=== PATIENT | male | born 1970 | race Caucasian/White ===

== ENCOUNTER 2016-08-07 09:31 | Emergency (ER) | payer OTHER ==
[2016-08-07] MEDS ORDERED: methylPREDNISolone SOD SUCCI 125 MG/2 ML VIAL IM ONE (10:24)
--- NOTE | 2016-08-07 10:30 | ED ---
Back Pain HPI - General Chief Complaint: Back Pain/Injury Stated Complaint: back pain Time Seen by Provider: 08/07/16 10:07 Source: patient Limitations: no limitations - History of Present Illness Initial Comments: 46-year-old male awoke with back pain this morning. Hard to get out of bed. Has a history of chronic pain for about 10 years fell off of a roof. He's had CAT scan 3 weeks ago. He states his back has been flaring up for the last 1 month. He does not take any narcotics other than tramadol. He is on muscle relaxers. He states his stiff he has no radiation of pain down his legs today no loss of bowel or bladder control. No recent injury. No fever or chills. No other serious health problems. No recent steroids so recent narcotics - Related Data Home Medications Medication Instructions Recorded Confirmed Albuterol Nebulized [Ventolin 2.5 mg INHALATION RT-Q6H PRN 03/01/16 03/01/16 Nebulized] Cyclobenzaprine [Flexeril] 10 mg PO BID PRN 03/01/16 03/01/16 HYDROcodone/APAP 7.5-325MG [[place] 1 tab PO TID PRN 03/01/16 03/01/16 7.5-325] Ibuprofen [Motrin] 200 - 400 mg PO Q6HR PRN 03/01/16 03/01/16 Previous Rx's Medication Instructions Recorded Dexamethasone 0.75 mg PO DAILY #12 tablet 03/01/16 Hydrocodone/Acetaminophen [[place] 1 each PO Q6HR PRN #30 tab 03/01/16 5-325] Orphenadrine [Norflex] 100 mg PO Q12H #10 tablet.er 03/01/16 Dexamethasone 0.75 mg PO DIRECTED #18 tab 08/07/16 Allergies Allergy/AdvReac Type Severity Reaction Status Date / Time No Known Allergies Allergy Verified 08/07/16 09:35 Review of Systems ROS Statement: Those systems with pertinent positive or pertinent negative responses have been documented in the HPI. ROS Other: All systems not noted in ROS Statement are negative. Constitutional: Denies: fever, chills Eyes: Denies: eye pain, eye discharge ENT: Denies: ear pain, throat pain Respiratory: Denies: cough, dyspnea Cardiovascular: Denies: chest pain Gastrointestinal: Denies: abdominal pain, nausea, vomiting, diarrhea Genitourinary: Denies: urgency, dysuria, frequency Musculoskeletal: Reports: back pain Skin: Denies: rash Past Medical History Past Medical History: No Reported History Additional Past Medical History / Comment(s): back pain History of Any Multi-Drug Resistant Organisms: MRSA Date of last positivie culture/infection: 04/10/15 MDRO Source:: right hand Past Surgical History: No Surgical Hx Reported Past Psychological History: No Psychological Hx Reported Smoking Status: Former smoker Past Alcohol Use History: None Reported Past Drug Use History: None Reported General Exam Limitations: no limitations General appearance: alert, in no apparent distress Head exam: Present: atraumatic Eye exam: Present: PERRL, EOMI ENT exam: Present: normal oropharynx Respiratory exam: Present: normal lung sounds bilaterally Cardiovascular Exam: Present: normal heart sounds GI/Abdominal exam: Present: soft Back exam: Present: tenderness (Low lumbar spine tenderness, pain with moving especially straightening negative straight leg raising reflexes symmetric) Neurological exam: Present: alert, CN II-XII intact Psychiatric exam: Present: normal affect, normal mood Skin exam: Present: warm, dry Course Vital Signs 08/07/16 09:33 Temperature 98.2 F Pulse Rate 108 H Respiratory 20 Rate Blood Pressure 140/95 O2 Sat by Pulse 99 Oximetry Disposition Clinical Impression: Degeneration of intervertebral disc Disposition: HOME SELF-CARE Condition: Good Instructions: Chronic Back Pain (ED) Additional Instructions: Continue heat, rest off work until Tuesday, follow up with Dr. Bynum, hold Motrin while taking this steroids but uses Tylenol and may use his muscle relaxer. Prescriptions: Dexamethasone 0.75 mg PO DIRECTED #18 tab Referrals: Miguel Bynum MD [Primary Care Provider] - 08/09/16 Time of Disposition: 10:29
--- NOTE | 2016-08-07 10:34 | ED ---
Disposition Clinical Impression: Degeneration of intervertebral disc Disposition: HOME SELF-CARE Condition: Good Instructions: Chronic Back Pain (ED) Additional Instructions: Continue heat, rest off work until Tuesday, follow up with Dr. Bynum, hold Motrin while taking this steroids but uses Tylenol and may use his muscle relaxer. Prescriptions: Dexamethasone 0.75 mg PO DIRECTED #18 tab Referrals: Miguel Bynum MD [Primary Care Provider] - 08/09/16
--- NOTE | 2016-08-07 10:37 | ED ---
Disposition Clinical Impression: Degeneration of intervertebral disc, Hypertension Disposition: HOME SELF-CARE Condition: Good Instructions: Chronic Back Pain (ED) Additional Instructions: Continue heat, rest off work until Tuesday, follow up with Dr. Bynum, hold Motrin while taking this steroids but uses Tylenol and may use his muscle relaxer. Low-salt diet and lose [address] Bynum regarding his blood pressure Prescriptions: Dexamethasone 0.75 mg PO DIRECTED #18 tab Referrals: Miguel Bynum MD [Primary Care Provider] - 08/09/16
[2016-08-07 10:41] VITALS: BP 117/84; PULSE 97; RESP 18; TEMP 98
== END 2016-08-07 10:40 | disposition home or self-care (01) ==
LOC: EC 09:31
DX: M51.36 Other intervertebral disc degeneration, lumbar region (principal); I10 Essential (primary) hypertension; Z87.891 Personal history of nicotine dependence
CPT/HCPCS: 99283 ×2; 96372 ×2; J2930

== ENCOUNTER 2019-08-19 16:37 | Emergency (ER) | payer OTHER ==
[2019-08-19 17:00] VITALS: BP 126/74; PULSE 103; RESP 18; TEMP 97.4
[2019-08-19] MEDS ORDERED: DIAZEPAM 2 MG TAB PO STA (17:15)
[2019-08-19] MEDS ORDERED: HYDROmorphone 0.5 MG/0.5 ML SYRINGE IM STA (17:15)
--- NOTE | 2019-08-19 18:43 | ED ---
Back Pain HPI - General Chief Complaint: Back Pain/Injury Stated Complaint: Back pain Time Seen by Provider: 08/19/19 17:01 Source: patient Limitations: no limitations - History of Present Illness Initial Comments: 49-year-old male presenting for low back pain. Patient states about 2 hours prior to arrival he was lifting a garbage can full of water when he felt a pain in his back. Patient states he has disease of L1-S1. Patient denies numbness of the lower extremities or weakness denies any loss of bowel bladder control urinary retention history of cancer history of fevers history of chronic steroid use. Patient states the pain occasionally radiates down the right leg, he has experienced this in the past as well. Patient denies fall or direct trauma. Patient ambulatory upon arrival appears well. Denies any other areas of injury or complaints. - Related Data Home Medications Medication Instructions Recorded Confirmed Albuterol Nebulized [Ventolin 2.5 mg INHALATION RT-Q6H PRN 03/01/16 03/01/16 Nebulized] Cyclobenzaprine [Flexeril] 10 mg PO BID PRN 03/01/16 03/01/16 HYDROcodone/APAP 7.5-325MG [[place] 1 tab PO TID PRN 03/01/16 03/01/16 7.5-325] Ibuprofen [Motrin] 200 - 400 mg PO Q6HR PRN 03/01/16 03/01/16 Previous Rx's Medication Instructions Recorded Dexamethasone 0.75 mg PO DAILY #12 tablet 03/01/16 Hydrocodone/Acetaminophen [[place] 1 each PO Q6HR PRN #30 tab 03/01/16 5-325] Orphenadrine [Norflex] 100 mg PO Q12H #10 tablet.er 03/01/16 Dexamethasone 0.75 mg PO DIRECTED #18 tab 08/07/16 Cyclobenzaprine [Flexeril] 10 mg PO TID PRN 7 Days #21 tab 08/19/19 HYDROcodone/APAP 5-325MG [[place] 1 tab PO Q6HR PRN 3 Days #12 tab 08/19/19 5-325] Allergies Allergy/AdvReac Type Severity Reaction Status Date / Time No Known Allergies Allergy Verified 08/19/19 17:00 Review of Systems ROS Statement: Those systems with pertinent positive or pertinent negative responses have been documented in the HPI. ROS Other: All systems not noted in ROS Statement are negative. Past Medical History Past Medical History: No Reported History Additional Past Medical History / Comment(s): back pain History of Any Multi-Drug Resistant Organisms: MRSA Date of last positivie culture/infection: 04/10/15 MDRO Source:: right hand Past Surgical History: No Surgical Hx Reported Past Psychological History: No Psychological Hx Reported Smoking Status: Former smoker Past Alcohol Use History: None Reported Past Drug Use History: None Reported General Exam - General Exam Comments Initial Comments: General: The patient is awake and alert, in no distress Eye: +3 mm pupils are equal, round and reactive to light, extra-ocular movements are intact. No nystagmus. There is normal conjunctiva bilaterally. No signs of icterus. Ears, nose, mouth and throat: There are moist mucous membranes and no oral lesions. Cardiovascular: There is a regular rate and rhythm. No murmur, rub or gallop is appreciated. Respiratory: Lungs are clear to auscultation, respirations are non-labored, breath sounds are equal. No wheezes, stridor, rales, or rhonchi. Gastrointestinal: Soft, non-distended, non-tender abdomen without masses or organomegaly noted. There is no rebound or guarding present. Musculoskeletal: Upon inspection of the lumbar spine there is no soft tissue swelling or ecchymosis. Patient has bilateral paravertebral tenderness of the lumbar spine as well as mild midline. There is no midline tenderness of the cervical thoracic spine. Patient has full strength of the lower extremities equal comparison bilaterally sensation with sensation in the saddle region. +2 dorsalis pedis pulses equal comparison bilaterally no extremity edema. Strength 5 out of 5 patient is able to sit up and ambulate. Neurological: A&O x 3. CN II-XII intact grossly, There are no obvious motor or sensory deficits. Coordination appears grossly intact. Speech is normal. Skin: Skin is warm and dry and no rashes or lesions are noted. Psychiatric: Cooperative, appropriate mood & affect, normal judgment. Limitations: no limitations Course Vital Signs 08/19/19 16:57 Temperature 97.4 F L Pulse Rate 103 H Respiratory 18 Rate Blood Pressure 126/74 O2 Sat by Pulse 97 Oximetry Medical Decision Making - Medical Decision Making 49-year-old male presented for low back pain. History of chronic back pain. Patient had history of lifting. Patient is no history concerning for cauda equina at this time. Also direct trauma. Patient was treated symptomatically. After discussing Dennis velez provider Dr. Vela we feel patient is stable for discharge with PCP f/u, and outpatinet MRI. patient is agreeable to this care plan. Opiod use was discussed at length patient discharged appearing well. Disposition Clinical Impression: Low back pain, Low back strain Disposition: HOME SELF-CARE Condition: Good Instructions (If sedation given, give patient instructions): Acute Low Back Pain (ED) Additional Instructions: Please use medication as discussed. Please follow-up with family doctor in the next 2 days, recommend outpatient MRI, return parameters as discussed-loss of bowel/bladder control, numbnes of legs or decreased strength. Please return to emergency room if the symptoms increase or worsen or for any other concerns. Prescriptions: Cyclobenzaprine [Flexeril] 10 mg PO TID PRN 7 Days #21 tab PRN Reason: Muscle Spasm HYDROcodone/APAP 5-325MG [[place] 5-325] 1 tab PO Q6HR PRN 3 Days #12 tab PRN Reason: Severe Pain Is patient prescribed a controlled substance at d/c from ED?: Yes When asked, does pt state using other controlled substances?: No If prescribed controlled substance>3 days was MAPS reviewed?: Prescribed <3 Days If opioid is for acute pain is fill amount 7 days or less?: Yes If Rx opioid, was Start Talking consent form obtained?: Yes Referrals: Shelly Rodrigez DO [Primary Care Provider] - 1-2 days Time of Disposition: 18:43
== END 2019-08-19 18:50 | disposition home or self-care (01) ==
LOC: EC 16:37
DX: S39.012A Strain of muscle, fascia and tendon of lower back, initial encounter (principal); Z87.891 Personal history of nicotine dependence; X50.9XXA Other and unspecified overexertion or strenuous movements or postures, initial encounter
CPT/HCPCS: 99283; 96372 ×3; J1170

== ENCOUNTER 2020-11-14 07:02 | Emergency (ER) | payer OTHER ==
[2020-11-14 07:16] VITALS: BP 162/84; PULSE 115; RESP 20; TEMP 98.2
[2020-11-14] MEDS ORDERED: KETOROLAC 15 MG/ML 1 ML VIAL IM STA (07:26)
--- NOTE | 2020-11-14 07:29 | ED ---
General Adult HPI - General Chief complaint: Extremity Injury, Lower Stated complaint: Injury,Left Knee Time Seen by Provider: 11/14/20 07:21 Source: patient, RN notes reviewed Mode of arrival: ambulatory Limitations: no limitations - History of Present Illness Initial comments: Patient is a pleasant 50-year-old male presenting to the emergency Department with complaints of left knee pain. Incident occurred this morning while pivoting holding a heavy ladder. Patient had a sudden snap sensation of his left knee. Discomfort lasted around 10 minutes and is mild at this point. Patient does have history of previous arthroscopic and previous knee problems from an old injury from a fall from 2 stories. No calf pain. No other area of injury or concern. No weakness. No loss of sensation. - Related Data Home Medications Medication Instructions Recorded Confirmed Albuterol Nebulized [Ventolin 2.5 mg INHALATION RT-Q6H PRN 03/01/16 03/01/16 Nebulized] Cyclobenzaprine [Flexeril] 10 mg PO BID PRN 03/01/16 03/01/16 HYDROcodone/APAP 7.5-325MG [[place] 1 tab PO TID PRN 03/01/16 03/01/16 7.5-325] Ibuprofen [Motrin] 200 - 400 mg PO Q6HR PRN 03/01/16 03/01/16 Previous Rx's Medication Instructions Recorded Hydrocodone/Acetaminophen [[place] 1 each PO Q6HR PRN #30 tab 03/01/16 5-325] Orphenadrine [Norflex] 100 mg PO Q12H #10 tablet.er 03/01/16 dexAMETHasone [Dexamethasone] 0.75 mg PO DAILY #12 tablet 03/01/16 dexAMETHasone [Dexamethasone] 0.75 mg PO DIRECTED #18 tab 08/07/16 Cyclobenzaprine [Flexeril] 10 mg PO TID PRN 7 Days #21 tab 08/19/19 HYDROcodone/APAP 5-325MG [[place] 1 tab PO Q6HR PRN 3 Days #12 tab 08/19/19 5-325] Ibuprofen [Motrin] 600 mg PO Q6HR PRN #20 tab 11/14/20 Allergies Allergy/AdvReac Type Severity Reaction Status Date / Time No Known Allergies Allergy Verified 11/14/20 07:16 Review of Systems ROS Statement: Those systems with pertinent positive or pertinent negative responses have been documented in the HPI. ROS Other: All systems not noted in ROS Statement are negative. Constitutional: Denies: fever Eyes: Denies: eye pain ENT: Denies: ear pain Respiratory: Denies: cough Cardiovascular: Denies: chest pain Endocrine: Denies: fatigue Gastrointestinal: Denies: abdominal pain Genitourinary: Denies: dysuria Musculoskeletal: Reports: as per HPI, arthralgia. Denies: back pain Skin: Denies: rash Neurological: Denies: weakness Past Medical History Past Medical History: No Reported History Additional Past Medical History / Comment(s): back pain History of Any Multi-Drug Resistant Organisms: MRSA Date of last positivie culture/infection: 04/10/15 MDRO Source:: right hand Past Surgical History: No Surgical Hx Reported Past Psychological History: No Psychological Hx Reported Smoking Status: Current every day smoker Past Alcohol Use History: None Reported Past Drug Use History: None Reported, Marijuana General Exam Limitations: no limitations General appearance: alert, in no apparent distress Head exam: Present: normocephalic Eye exam: Present: normal appearance Respiratory exam: Present: normal lung sounds bilaterally Cardiovascular Exam: Present: regular rate, normal rhythm Expanded Peripheral pulses: 2+: Posterior Tibialis (L) GI/Abdominal exam: Present: soft. Absent: tenderness Extremities exam: Absent: calf tenderness Left Knee exam: Present: normal inspection, tenderness (Moderate tenderness medial meniscus region). Absent: swelling, abrasion, ecchymosis, dislocation, posterior draw sign, pain/laxity with valgus, pain/laxity with varus Neurological exam: Present: alert. Absent: motor sensory deficit Psychiatric exam: Present: normal affect, normal mood Skin exam: Present: normal color Course Vital Signs 11/14/20 07:13 Temperature 98.2 F Pulse Rate 115 H Respiratory 20 Rate Blood Pressure 162/84 O2 Sat by Pulse 97 Oximetry Medical Decision Making - Medical Decision Making Patient updated on results and need for follow-up. Patient advised orthopedic evaluation and states he has his own on [address]. Patient is made aware of concern for meniscus injury. - Radiology Data Radiology results: image reviewed (Left knee x-ray shows mild anterior soft tissue swelling and trace effusion. No acute osseous abnormality.) Disposition Clinical Impression: Left knee injury Disposition: HOME SELF-CARE Condition: Stable Instructions (If sedation given, give patient instructions): Knee Pain (ED) Additional Instructions: Prescription for Motrin [facility]. Use knee immobilizer. Ice to affected area. Follow-up with orthopedics in the next couple days for recheck. You will need further evaluation. Return for increased pain, swelling, redness or fever, worsening symptoms or any other concerns or weakness. Prescriptions: Ibuprofen [Motrin] 600 mg PO Q6HR PRN #20 tab PRN Reason: Pain Is patient prescribed a controlled substance at d/c from ED?: No Referrals: Minal Rodrigez MD [STAFF PHYSICIAN] - 1-2 days Drew Muller DO [Doctor of Osteopathic Medicine] - 1-2 days Time of Disposition: 08:02
--- NOTE | 2020-11-14 07:51 | XR ---
EXAMINATION TYPE: XR knee complete LT DATE OF EXAM: 11/14/2020 COMPARISON: None HISTORY: 50-year-old male twisting injury and pain TECHNIQUE: 3 views FINDINGS: No acute fracture, subluxation, or dislocation. Extensor mechanism appears intact. Trace knee joint e ffusion. Mild anterior soft tissue swelling. IMPRESSION: Mild anterior soft tissue swelling and trace knee joint effusion. No acute osseous abnormality seen. If pain persists or concern for internal derangement, MRI can be performed.
== END 2020-11-14 08:17 | disposition home or self-care (01) ==
LOC: EC 07:02
DX: S89.92XA Unspecified injury of left lower leg, initial encounter (principal); F17.200 Nicotine dependence, unspecified, uncomplicated; Z79.1 Long term (current) use of non-steroidal anti-inflammatories (NSAID); Z79.52 Long term (current) use of systemic steroids; X50.1XXA Overexertion from prolonged static or awkward postures, initial encounter
CPT/HCPCS: 73562; 99283; 96372; L1830; J1885

== ENCOUNTER → 2022-03-25 | Outpatient (CLI) | payer BC ==
--- NOTE | 2022-03-25 12:55 | CA ---
Exercise Stress Test Report Name: Junior Payan Exam Date: 03/25/2022 10:38 Exam Location: [place] Stress Ht (in): 72 Wt (lb): 242 BSA: 2.31 Ordering Phys: Branden Spear MD Referring Phys: Branden Spear MD Technologist: Vishnu Aparicio Age: 51 Gender: M : 1970 Procedure CPT: Indications: R07.9 CHEST PAIN R55 SYNCOPE AND COLLAPSE ICD-10 Codes: Patient History: Medications: NONE Meds past 24 hrs: Pretest Chest Pain: STRESS TEST Protocol Exercise Duration (min:sec): 06:[address] Depressions (mm): Angina Score: Barnett Score: Resting HR (bpm): 93 Peak HR (bpm): 150 Resting BP (mmHg): 129 / 96 Peak BP (mmHg): 194 / 99 MPHR: 170 Target HR: 145 % MPHR: 88 METS: 7.9 Total Dose: Peak Dose: Atropine: Double Product: 63228 BP Response: Stress Termination: Reached target heart rate Stress Symptoms: SHORTNESS OF BREATH Stress Summary: ECG ANALYSIS Resting ECG: Stress ECG: CONCLUSIONS Patient underwent exercise stress EKG with a Du protocol treadmill stress test. Patient exercised into Stage 2 for a total of 6 minutes 35 seconds reaching a total of 7.9 METS. Patient's maximum heart rate was 150 which represented 88 % age- predicted maximum heart rate. Stress EKG findings: At baseline patient's EKG showed normal sinus rhythm, normal axis, no significant ST or T wave abnormalities. At peak exercise, EKG showed no significant change from baseline. Conclusions: 1. Normal EKG response to exercise without evidence of inducible ischemia. 2. Fair exercise capacity. Dr. Luis Alfredo Cha DO (Electronically Signed) Final Date: 25 March 2022 12:54
== END | disposition home or self-care (01) ==
LOC: RADNMMAIN 10:12
PROVIDERS: ATTEND Family Medicine
DX: L74.9 Eccrine sweat disorder, unspecified (principal); R07.9 Chest pain, unspecified; R55 Syncope and collapse; W13.2XXA Fall from, out of or through roof, initial encounter
CPT/HCPCS: 93017

== ENCOUNTER → 2022-06-08 | Outpatient (CLI) | payer BC ==
--- NOTE | 2022-06-08 08:48 | CT ---
EXAMINATION TYPE: CT lumbar spine w con DATE OF EXAM: 06/08/2022 COMPARISON: Lumbar spine x-ray March 01, 2016 HISTORY: back pain chronic with numbness into bilateral legs. CT DLP: 1605.8 mGycm Automated exposure control for dose reduction was used. CONTRAST: CT scan of the lumbar is performed with IV Contrast, patient injected with 70 mL of Isovue 300. Enhanced CT of the lumbar spine was performed. Bone and soft tissue window settings are submitted as well as coronal and sagittal reconstructions. There are 5 lumbar-type vertebra. There is slight grade 1 retrolisthesis of L2 on L3 and L3 on L4. Ve rtebral body heights are maintained. Cwgg-[id number]-vguoysxa multilevel disc space narrowing with multilevel vacuum disc phenomenon L2-L3 through the L5-S1 levels. Mild to moderate multilevel anterior and late ral spurring. Axial images at T12-L1 and L1-L2 levels appear within normal limits. Axial images at L2-L3 level show spondylolisthesis with mild/moderate broad disc bulge mildly effacin g the anterior thecal sac. Patent bilateral neural foramina are seen. Axial images at L3-L4 level show mild/moderate broad disc bulge mildly effacing the anterior thecal s ac with mild facet arthropathy slightly effacing the bilateral posterolateral thecal sac. There is mi ld bilateral anterior inferior neural foraminal narrowing. Axial images at L4-L5 level show mild to moderate facet arthropathy and ligamentum flavum hypertrophy with slight effacement of the posterolateral thecal sac left greater than right. There is mild broad disc bulge with left foraminal disc protrusion component. There is effacement of the anterior thecal sac greater on the left. There is moderate to severe left-sided neural foraminal narrowing and suspe cted encroachment on the left L4 nerve sagittal image 39 and axial image 54. Right-sided neural tory torres is patent. Axial images at L5-S1 level shows moderate facet arthropathy bilaterally. There is focal left paracen tral disc protrusion with spinal canal preserved as is increased epidural fat at this level. There is moderate right and moderate to severe left-sided neural foraminal narrowing with possible encroachme nt on left L5 nerve sagittal image 40 due to marginal spur disc complex. Visualized liver is markedly hypodense suggesting diffuse fatty infiltration.. No abnormal enhancemen t is seen. IMPRESSION: Multilevel degenerative changes greatest in the mid to lower lumbar spine as detailed abo ve.
== END | disposition home or self-care (01) ==
LOC: RADCTMAIN 07:44
PROVIDERS: ATTEND Family Medicine
DX: M47.817 Spondylosis without myelopathy or radiculopathy, lumbosacral region (principal); M51.27 Other intervertebral disc displacement, lumbosacral region; M99.74 Connective tissue and disc stenosis of intervertebral foramina of sacral region
CPT/HCPCS: 72132; Q9967

== ENCOUNTER → 2022-11-25 | Outpatient (CLI) | payer BC ==
[2022-11-25 09:44] VITALS: BP 135/98; PULSE 101; RESP 16; TEMP 98.4
--- NOTE | 2022-11-25 14:56 | P.PAINPG ---
PQRS Measure Charge Sheet Comment: HISTORY OF PRESENT ILLNESS: 52 yr old male as a referral from Dr Spear presents today w severe and chronic LBP since a fall from roof in 2017 secondary to spondylolisthesis, DDD and facet arthropathy without myelopathy for evaluation. Pt states pain level is provoked at 10 /10 in intensity, constant, localized in the mid to lower lumbar spine, burning in character w shooting pain towards the BL thighs. Pain is provoked by bending, lifting. Pain is alleviated by medications ([place], Ibu), topical, injections by Dr Art, ice, heat, physician guided squatting w BLE elevation nightly x 3 yrs, THC products, reclining and rest. Pt states his insurance does not cover PT and the out of pocket costs are too unaffordable to him. PMH: OA, RLS PSH: Denies SH: Former tobacco user, No ETOH abuse, No illicit drug use FH: Non contributory All: NKDA Meds: See list REVIEW OF ORGAN SYSTEMS: CONSTITUTIONAL: No fevers or chills. No recent weight loss. NEUROLOGICAL: + numbness and tingling along the distal extremities. No seizure disorders or headaches. MUSCULOSKELETAL: + pain PSYCHIATRIC: Denies current depression or suicidal thoughts. Physical Examinations : Constitutional : Cooperative , not in acute distress . Neurologic : Cranial nerve II to XII intact. No focal neurological deficits. Psychiatric : alert & oriented x 3. Matching mood & appropriate affect. Judgment & insight intact. Musculoskeletal : Cervical Spine Motor strength in the deltoid and biceps: Normal right side. Normal Left side Motor strength biceps and the wrist extensors: Normal right side . Normal left side Motor strength in the triceps muscle: Normal right side. Normal left side Deep tendon reflexes: Normal at the biceps. Normal at Brachioradialis. Normal at triceps Vertebral body tenderness to deep palpation over Cervical facet loading test: positive bilaterally Spurling test: positive bilaterally Neck distraction test: positive bilaterally Jl sign: positive bilaterally Lumbar spine Motor strength lower extremities ,thigh and legs 5/5 Right side , 5/5 Left side Deep tendon reflexes : Normal Knee Jerk. Normal Ankle Jerk Vertebral body tenderness over L4 Lumbar facet Loading Test: positive Right / positive Left Range of motion of the lumbar spine Flexion 30 degrees, extension 10 degrees Straight Leg Raise test: Left/ Right positive at 30 degrees Alethea test: positive right / positive left. Severe tenderness over the Sacroiliac joint on the Right / Left sides Gaenslen test: positive bilaterally Seated flexion test: positive bilaterally. Sacral spine : Severe tenderness over the Sacroiliac joint: right side / left side Range of motion: Flexion of the lumbar spine <60 degrees Range of motion: Extension of the lumbar spine <20 degrees Gaenslen's Test positive Rosales's Test positive Alethea test: positive right side / left side Thigh Thrust Test Sacral Thrust Test Imaging: CT noncontrast of the lumbar spine from 06/08/22 reviewed Assessment/ Plan : Lumbar spondylolisthesis Recommendatinon of MELANIE L4-5 #1. May need a series of injections for optimal pain relief. Risks, benefits of procedure discussed and patient verbalized understanding. Admits to aspirin or anti- coagulant use or medical history of diabetes. Protocol for discontinuation/ continuation of medications andrew proc edure discussed. All questions answered. I have spent greater than 30 minutes on patient care today. Dr Paul was available by phone for the evaluation of this patient. The time was used to review the medical records including relevant urine studies and Prescription history (MAPs), review of the available imaging, evaluation and examination of the patient, coordination of care with the medical staff and if applicable referring physicians, as well as creation of the medical record PQRS Narrative: Smoking Status Former smoker Home Medications: Ambulatory Orders Albuterol Nebulized [Ventolin Nebulized] 2.5 mg INHALATION RT-Q6H PRN 03/01/16 Cyclobenzaprine [Flexeril] 10 mg PO BID PRN 03/01/16 HYDROcodone/APAP 7.5-325MG [[place] 7.5-325] 1 tab PO TID PRN 03/01/16 Hydrocodone/Acetaminophen [[place] 5-325] 1 each PO Q6HR PRN #30 tab 03/01/16 Ibuprofen [Motrin] 200 - 400 mg PO Q6HR PRN 03/01/16 Orphenadrine [Norflex] 100 mg PO Q12H #10 tablet.er 03/01/16 dexAMETHasone [Decadron] 0.75 mg PO DAILY #12 tablet 03/01/16 dexAMETHasone [Decadron] 0.75 mg PO DIRECTED #18 tab 08/07/16 Cyclobenzaprine [Flexeril] 10 mg PO TID PRN 7 Days #21 tab 08/19/19 HYDROcodone/APAP 5-325MG [[place] 5-325] 1 tab PO Q6HR PRN 3 Days #12 tab 08/19/19 Ibuprofen [Motrin] 600 mg PO Q6HR PRN #20 tab 11/14/20 Controlled Substance Measures - Controlled Substance Measures Is patient prescribed a controlled substance at discharge?: No
== END ==
LOC: PNWHC3 08:38
PROVIDERS: ATTEND Specialist
DX: M43.16 Spondylolisthesis, lumbar region (principal); M19.90 Unspecified osteoarthritis, unspecified site; G25.81 Restless legs syndrome; Z87.891 Personal history of nicotine dependence
CPT/HCPCS: 99202

== ENCOUNTER 2022-12-21 07:46 | Day surgery (SDC) | payer BC ==
[2022-12-21] MEDS ORDERED: LACTATED RINGERS 1,000 ML IV SCH (08:09)
[2022-12-21] MEDS ORDERED: LIDOCAINE 1% (10MG/ML) FOR IV START INTRADERMA PRN (08:09)
[2022-12-21 08:26] VITALS: RESP 16; TEMP 97.1
[2022-12-21] MEDS ORDERED: fentaNYL (PF) 50 MCG/ML 2 ML AMP ONE (08:46)
[2022-12-21] MEDS ORDERED: MIDAZOLAM 2 MG/2 ML VIAL ONE (08:46)
[2022-12-21] MEDS ORDERED: methylPREDNISolone ACETATE 80 MG/ML 1 ML VIAL ONE (08:46)
[2022-12-21] MEDS ORDERED: IOPAMIDOL M200 10 ML VIAL ONE (08:46)
--- NOTE | 2022-12-21 08:53 | P.PCN ---
Date of Procedure: 12/21/22 Procedure(s) Performed: PREOPERATIVE DIAGNOSIS: 1- Lumbar Degenerative Disc Diseases 2-Lumbar spondylolisthesis POSTOPERATIVE DIAGNOSIS: 1-lumbar degenerative disc disease. 2-lumbar spondylolisthesis PROCEDURE 1. Lumbar epidural steroid injection under fluoroscopic guidance at the L4-5 level. (Fluoroscopy imaging was available in radiology department) 2. Lumbar epidurogram. ANESTHESIA: moderate sedation with intravenous Versed 2 mg ,and fentanyle 100 Mcg Sedation start time : 0846 Sedation end time :0850 EBL: Minimal PROCEDURE INDICATION: The patient with low back pain and radiculitis symptoms unresponsive to conservative treatment. Fluoroscopy was used to optimize visualization of the needle placement and to maximize safety. PROCEDURE DESCRIPTION / TECHNIQUE: The patient was seen and identified in the preoperative area. Risks, benefits, complications including but not limited to infections ,bleeding ,allergic reaction to the medications ,nerve damage and not complete pain releife , and alternatives were discussed with the patient. The patient agreed to proceed with the procedure and signed the consent. IV was started, and vital signs were stable. Patient was taken to the OR and time out was completed. The patient was placed in the prone position on procedure table and a pillow was placed under the abdomen to reduce lumbar lordosis. The lumbosacral area was prepped and draped in the usual sterile fashion.ere closely monitored during the procedure. Conscious sedation was used during the procedure to decrease patients anxiety. Vital signs was monitered during the entire procedure. Using anterior-posterior fluoroscopy, the L4-5 interlaminar space was identified and the skin over this site was marked and then infiltrated with 1% lidocaine subcutaneously. Subsequently, a 20-gauge Tuohy epidural needle was inserted and advanced toward the epidural space using the ``Loss of resistance technique and guided by AP and lateral fluoroscopy. The correct needle position in the e pidural space was verified with the injection of 2 mL of the water soluble contrast dye Isovue 200 contrast and observing an excellent epidurogram with the epidural spread of the dye, after negative aspiration for blood and CSF and in the absence of paresthesias. Again after negative aspiration, a 6 ml mixture containing 80 mg of Depo-medrol ( Preservetive Free ), and 2 ml of preservative free Normal Saline, and 2 ml of preservative free lidocaine 1% solution was injected and a washout of epidurogram was seen. Needle was withdrawn intact, skin was cleansed, and bandages were applied. COMPLICATIONS: None DISPOSITION / PLANS: The patient was placed in a supine position and transferred to the recovery area in a stable condition for observation. There was no evidence of lower extremity motor or sensory deficit after the procedure. Patient was discharged from the recovery room after meeting discharge criteria. Home discharge instructions were given to the patient by the staff. The patient was reexamined prior to discharge. The patient will schedule a follow up in the clinic in 2-4 weeks.
[2022-12-21 08:57] VITALS: PULSE 92
--- NOTE | 2022-12-21 09:08 | FL ---
Intraoperative/procedural fluoroscopic services were provided. Total fluoroscopy time is 3.1 seconds with a total of 1 submitted images to PACS. Please see the operative/procedural note for further deta ils. DAP: [id number] mGym2
[2022-12-21 09:10] VITALS: BP 145/89
== END 2022-12-21 09:33 | disposition home or self-care (01) ==
LOC: ORPAIN 07:46
PROVIDERS: ATTEND Specialist
DX: M51.16 Intervertebral disc disorders with radiculopathy, lumbar region (principal); M43.16 Spondylolisthesis, lumbar region
CPT/HCPCS: 62323; J2250; J1040; J3010; Q9966

== ENCOUNTER → 2023-01-13 | Outpatient (CLI) | payer BC ==
[2023-01-13 08:53] VITALS: BP 128/96; PULSE 100; RESP 17; TEMP 98
--- NOTE | 2023-01-13 15:00 | P.PAINPG ---
PQRS Measure Charge Sheet Comment: A 52 yr old male w daughter at side with a history of severe and chronic LBP since 2017 (after falling 2 stories in 2004) secondary to lumbar DDD and spondylosis with facet arthropathy without myelopathy presents today for evaluation s/p MELANIE L4-L5. Pt states he experienced 100% pain relief x 2 days s/p procedure. Pain level is provoked at 10 /10 in intensity, constant, localized in the lumbar spine, burning in character w shooting towards the BL hips, LEs and feet. Pain is provoked by running or standing for periods of 5 min r more. Pain is alleviated with medications, topical, physician guided home exercises consisting of 20 squats at bedtime x 20 yrs, heat, ice, repositioning and rest. 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 Pt has stayed physically active through employment throughout his injury. Interventional pain procedures completed include MELANIE L4-L5 x1 Patient is currently on [place], Ibu Patient denies any side effects of the medication(s), denies excessive drowsiness or sleepiness, denies suicidal ideation and reports that the current pain medication is helping to control the pain and improve activities of daily living. Patient denies any motor or sensory deficits. Patient denies any fever or night sweats, denies any change in the bowel movements or urination. Physical Examination: -Constitutional: Cooperative. Not in acute distress . - Neurologic: Cranial nerve II to XII intact. No focal neurological deficits. - Psychatric: Alert & oriented x 3. Matching mood & appropriate affect. Judgment and insight intact. - Musculoskeletal: Cervical spine: Muscle bulk/ tone/ strength in the bilateral upper extremities normal Vertebral body tenderness to palpation over Spurling test positive Distraction test positive Facet loading test positive TTP Thoracic spine Muscle bulk / tone/ strength in the bilateral paraspinal muscles normal Vertebral body tender to palpation over Facet loading test positive TTP Lumbar spine: Motor bulk/ tone/ strength lower extremities , thigh and legs : 5/5 Deep tendon reflexes : Normal Knee Jerk. Normal Ankle Jerk . Vertebral body tenderness to palpation over Gonzalez Test positive BL L2-S1 taut bands w painful twitch response Lumbar Facet Loading Test positive Straight Leg Raise: positive at 30 degrees right side/ left side Gaenslen's Test positive Sacral spine : Severe tenderness over the Sacroiliac joint: right side / left side Range of motion: Flexion of the lumbar spine <60 degrees Range of motion: Extension of the lumbar spine <20 degrees Gaenslen's Test positive right side / left side Alethea test: positive right side / left side Thigh Thrust Test positive right side / left side Sacral Thrust Test positive right side / left side Assessment and plan: Chronic LBP secondary to lumbar DDD, spondylosis with facet arthropathy without myelopathy Recommendation of BL TPIs L2-S1. May need a series of injections for optimal pain relief. Risks, benefits of procedure discussed and pt verbalized understanding. Admits to anticoagulant use or medical history of diabetes. Protocol for discontinuation/ continuation of medications andrew procedure discussed. Minimal anesthesia provided, if clinically indicated, consisting of Versed and Fentanyl. All questions answered. I have spent less than 30 minutes on patient care today. Dr Paul was available by phone for the evaluation of this patient. The time was used to review the medical records including relevant urine studies and Prescription history (MAPs), review of the available imaging, evaluation and examination of the patient, coordination of care with the medical staff and if applicable referring physicians, as well as creation of the medical record PQRS Narrative: Smoking Status Former smoker Hx Alcohol Use (MH) No Home Medications: Ambulatory Orders Albuterol Nebulized [Ventolin Nebulized] 2.5 mg INHALATION RT-Q6H PRN 03/01/16 HYDROcodone/APAP 7.5-325MG [[place] 7.5-325] 1 tab PO TID PRN 03/01/16 Ibuprofen [Motrin] 800 mg PO Q6HR PRN 12/17/22 Controlled Substance Measures - Controlled Substance Measures Is patient prescribed a controlled substance at discharge?: No
== END ==
LOC: PNWHC3 08:20
PROVIDERS: ATTEND Specialist
DX: M51.37 Other intervertebral disc degeneration, lumbosacral region (principal); M47.817 Spondylosis without myelopathy or radiculopathy, lumbosacral region; G89.29 Other chronic pain; Z87.891 Personal history of nicotine dependence
CPT/HCPCS: 99211

== ENCOUNTER 2023-01-20 10:48 | Day surgery (SDC) | payer BC ==
[2023-01-20] MEDS ORDERED: LACTATED RINGERS 1,000 ML IV SCH (11:39)
[2023-01-20 11:48] VITALS: RESP 18; TEMP 97.1
[2023-01-20] MEDS ORDERED: methylPREDNISolone ACETATE 40 MG/ML 1 ML VIAL ONE (12:44)
[2023-01-20] MEDS ORDERED: ROPIVACAINE 5 MG/ML 20 ML AMPULE ONE (12:44)
--- NOTE | 2023-01-20 12:50 | P.PCN ---
Date of Procedure: 01/20/23 Procedure(s) Performed: Procedure= trigger point injections lumbar paraspinal muscles bilaterally , 5 on the right side from L2 to S1, and 4 on the left side from L2 to S1 Preoperative diagnosis= 1-myofascial pain syndrome lumbar paraspinal muscles 2-lumbar degenerative disc disease 3-lumbar facet arthropathy Postoperative diagnosis=Same as preop Diagnosis . Complication = none Condition= stable Anesthesia=none Indication for the procedure= patient complaining of low back pain , examination was positive for multiple trigger point in the lumbar paraspinal muscles bilaterally and patient diagnosed with myofascial pain syndrome and is here to have trigger point injections Description of the procedure= procedure risk and benefits discussed with the patient, including but not limited, risk of infection and bleeding, and ALLERGIC reaction to the medication and not complete pain relief and patient agreed with the preceding patient taken to the operating room, placed in sitting position or standard monitors applied to the patient then after induction of anesthesia back prepped with chlorhexidine 3 times , then under sterile technique each of the trigger point that was marked in the preop holding area 5 on the right side lumbar paraspinal muscles and 4 on the left side lumbar paraspinal muscles each one of them injected with the 2 mL of the mixture of ropivacaine 0.5% 18 ML mixed with 40 mg of Depo-Medrol and 2 mL of the mixture injected at each trigger point after negative aspiration, using 25-gauge needle, injection done after negative aspiration under was no paresthesia during the injection patient tolerated the procedure well without any complications and he will follow up in the pain clinic in a few weeks
[2023-01-20 12:57] VITALS: BP 124/64; PULSE 86
== END 2023-01-20 13:06 | disposition home or self-care (01) ==
LOC: ORPAIN 10:48
PROVIDERS: ATTEND Specialist
DX: M79.18 Myalgia, other site (principal); M51.36 Other intervertebral disc degeneration, lumbar region; M47.816 Spondylosis without myelopathy or radiculopathy, lumbar region
CPT/HCPCS: 20553; J1030; J2795

== ENCOUNTER → 2023-02-17 | Outpatient (CLI) | payer BC ==
[2023-02-17 09:13] VITALS: BP 137/92; PULSE 110; RESP 17; TEMP 97.8
--- NOTE | 2023-02-17 13:26 | P.PAINPG ---
PQRS Measure Charge Sheet Comment: A 52 yr old male w daughter at side with a history of severe and chronic LBP since 2017 (after falling 2 stories in 2004) secondary to lumbar DDD and spondylosis with facet arthropathy without myelopathy presents today for evaluation s/p Lumbar TPIs. Pt states he experienced 0 % pain relief x 4 wks s/p procedure. Pain level is provoked at 4 /10 in intensity, constant, localized in the lumbar spine, burning in character w shooting towards the BL thighs. Pain is provoked by running or standing for periods of 5 min r more. Pain is alleviated with medications, topical, physician guided home exercises consisting of 20 squats at bedtime x 20 yrs, swims three times weekly at the [facility], heat, ice, repositioning and rest. 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 Oswestry axial pain score of 30 Interventional pain procedures completed include MELANIE L4-L5 x1, Lumbar TPIs Patient is currently on [place], Ibu Patient denies any side effects of the medication(s), denies excessive drowsiness or sleepiness, denies suicidal ideation and reports that the current pain medication is helping to control the pain and improve activities of daily living. Patient denies any motor or sensory deficits. Patient denies any fever or night sweats, denies any change in the bowel movements or urination. Physical Examination: -Constitutional: Cooperative. Not in acute distress . - Neurologic: Cranial nerve II to XII intact. No focal neurological deficits. - Psychatric: Alert & oriented x 3. Matching mood & appropriate affect. Judgment and insight intact. - Musculoskeletal: Cervical spine: Muscle bulk/ tone/ strength in the bilateral upper extremities normal Vertebral body tenderness to palpation over Spurling test positive Distraction test positive Facet loading test positive TTP Thoracic spine Muscle bulk / tone/ strength in the bilateral paraspinal muscles normal Vertebral body tender to palpation over Facet loading test positive TTP Lumbar spine: Motor bulk/ tone/ strength lower extremities , thigh and legs : 5/5 Deep tendon reflexes : Normal Knee Jerk. Normal Ankle Jerk . Vertebral body tenderness to palpation over L3 Gonzalez Test positive Lumbar Facet Loading Test positive Straight Leg Raise: positive at 30 degrees right side/ left side Gaenslen's Test positive Sacral spine : Severe tenderness over the Sacroiliac joint: right side / left side Range of motion: Flexion of the lumbar spine <60 degrees Range of motion: Extension of the lumbar spine <20 degrees Gaenslen's Test positive right side / left side Alethea test: positive right side / left side Thigh Thrust Test positive right side / left side Sacral Thrust Test positive right side / left side Assessment and plan: Chronic LBP secondary to lumbar DDD, spondylosis with facet arthropathy without myelopathy Recommendation of BL TFESI L3-L4. May need a series of injections for optimal pain relief. Risks, benefits of procedure discussed and pt verbalized understanding. Admits to anticoagulant use or medical history of diabetes. Protocol for discontinuation/ continuation of medications andrew procedure discussed. Minimal anesthesia provided, if clinically indicated, consisting of Versed and Fentanyl. All questions answered. I have spent less than 30 minutes on patient care today. Dr Paul was available by phone for the evaluation of this patient. The time was used to review the medical records including relevant urine studies and Prescription history (MAPs), review of the available imaging, evaluation and examination of the patient, coordination of care with the medical staff and if applicable referring physicians, as well as creation of the medical record PQRS Narrative: Smoking Status Former smoker Hx Alcohol Use (MH) No Home Medications: Ambulatory Orders Albuterol Nebulized [Ventolin Nebulized] 2.5 mg INHALATION RT-Q6H PRN 03/01/16 HYDROcodone/APAP 7.5-325MG [[place] 7.5-325] 1 tab PO TID PRN 03/01/16 Ibuprofen [Motrin] 800 mg PO Q6HR PRN 12/17/22 Controlled Substance Measures - Controlled Substance Measures Is patient prescribed a controlled substance at discharge?: No
== END ==
LOC: PNWHC3 08:32
PROVIDERS: ATTEND Specialist
DX: M51.36 Other intervertebral disc degeneration, lumbar region (principal); M47.816 Spondylosis without myelopathy or radiculopathy, lumbar region; G89.29 Other chronic pain; Z87.891 Personal history of nicotine dependence
CPT/HCPCS: 99211

== ENCOUNTER → 2024-02-16 | Outpatient (CLI) | payer BC ==
[2024-02-16 12:21] VITALS: BP 131/90; PULSE 105; RESP 16
--- NOTE | 2024-02-16 15:04 | P.PAINPG ---
PQRS Measure Charge Sheet Comment: A 53 yr old male with a history of severe and chronic LBP since 2017 (after falling 2 stories in 2004) secondary to lumbar DDD and spondylosis with facet arthropathy without myelopathy presents today for evaluation. Pain level is provoked at 9 /10 in intensity, constant, localized in the lumbar spine, predo minantly axial, burning in character w occasional shooting towards the R thigh. Pain is provoked by weight bearing activity. Pain is alleviated with medications, topical, continuous physician guided home exercises consisting of 20 squats at bedtime x 20 yrs, swims three times weekly at the [facility], heat, ice, repositioning and rest. 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 Oswestry axial pain score of 30. Interventional pain procedures completed include MELANIE L4-L5 x1, Lumbar TPIs Patient is currently on [place] Patient denies any side effects of the medication(s), denies excessive drowsiness or sleepiness, denies suicidal ideation and reports that the current pain medication is helping to control the pain and improve activities of daily living. Patient denies any motor or sensory deficits. Patient denies any fever or night sweats, denies any change in the bowel movements or urination. Physical Examination: -Constitutional: Cooperative. Not in acute distress . - Neurologic: Cranial nerve II to XII intact. No focal neurological deficits. - Psychatric: Alert & oriented x 3. Matching mood & appropriate affect. Judgment and insight intact. - Musculoskeletal: Cervical spine: Muscle bulk/ tone/ strength in the bilateral upper extremities normal Vertebral body tenderness to palpation over Spurling test positive Distraction test positive Facet loading test positive TTP Thoracic spine Muscle bulk / tone/ strength in the bilateral paraspinal muscles normal Vertebral body tender to palpation over Facet loading test positive TTP Lumbar spine: Motor bulk/ tone/ strength lower extremities , thigh and legs : 5/5 Deep tendon reflexes : Normal Knee Jerk. Normal Ankle Jerk . Vertebral body tenderness to palpation over L3 Gonzalez Test positive BL L3-L4 R> L Lumbar Facet Loading Test positive Straight Leg Raise: positive at 30 degrees right side/ left side Gaenslen's Test positive Sacral spine : Severe tenderness over the Sacroiliac joint: right side / left side Range of motion: Flexion of the lumbar spine <60 degrees Range of motion: Extension of the lumbar spine <20 degrees Gaenslen's Test positive right side / left side Alethea test: positive right side / left side Thigh Thrust Test positive right side / left side Sacral Thrust Test positive right side / left side Assessment and plan: Chronic LBP secondary to lumbar DDD, spondylosis with facet arthropathy without myelopathy Recommendation of BL TFESI L3-L4 #1. Risks, benefits of procedure discussed and pt verbalized understanding. Admits to anticoagulant use or medical history of diabetes. Protocol for discontinuation/ continuation of medications andrew procedure discussed. All questions answered. I have spent less than 30 minutes on patient care today. Dr Paul was a vailable by phone for the evaluation of this patient. The time was used to review the medical records including relevant urine studies and Prescription history (MAPs), review of the available imaging, evaluation and examination of the patient, coordination of care with the medical staff and if applicable referring physicians, as well as creation of the medical record PQRS Narrative: Smoking Status Former smoker Hx Alcohol Use (MH) No Home Medications: Ambulatory Orders Albuterol Nebulized [Ventolin Nebulized] 2.5 mg INHALATION Q6H PRN 03/01/16 HYDROcodone/APAP 7.5-325MG [[place] 7.5-325] 1 tab PO TID PRN 03/01/16 Ibuprofen [Motrin] 800 mg PO Q6HR PRN 12/17/22 diazePAM [Valium] 5 mg PO DAILY PRN 1 Days #2 tab 02/16/24 Controlled Substance Measures - Controlled Substance Measures Is patient prescribed a controlled substance at discharge?: Yes When asked, does pt state using other controlled substances?: Yes If prescribed controlled substance>3 days was MAPS reviewed?: Prescribed <3 Days
== END ==
LOC: PNWHC3 09:55
PROVIDERS: ATTEND Specialist
DX: M51.36 Other intervertebral disc degeneration, lumbar region (principal); M47.816 Spondylosis without myelopathy or radiculopathy, lumbar region; Z87.891 Personal history of nicotine dependence
CPT/HCPCS: 99211

== ENCOUNTER 2024-03-06 12:00 | Day surgery (SDC) | payer BC ==
[2024-03-06] MEDS ORDERED: IOPAMIDOL M200 10 ML VIAL ONE (14:48)
[2024-03-06] MEDS ORDERED: methylPREDNISolone ACETATE 80 MG/ML 1 ML VIAL ONE (14:48)
--- NOTE | 2024-04-24 18:20 | FL ---
EXAMINATION TYPE: FL guided pain mgmt statistic DATE OF EXAM: 03/27/2024 4:30 PM COMPARISON: Pre Operative Images if available both CT/MRI or plain film CLINICAL INDICATION: Male, 53 years old with history of TRANSFORAMINAL STER INJ; TECHNIQUE: FL guided pain mgmt statistic, multiple fluoroscopic images provided for procedure. Total fluoroscopy time: 6 seconds Total submitted images to PACS: 6 DAP: 0.2860 mGym2 Gycm2 uGym2 cGycm2 or equivalent. FINDINGS: Fluoroscopic images during injection for pain management demonstrate multilevel degeneration changes throughout the spine. No evidence for fracture. No acute process identified. IMPRESSION: 1. No evidence for intraoperative complication. 2. Please see the operative/procedural note for further details. [facility], , 04/24/2024 6:18 PM
== END 2024-03-06 15:35 ==
LOC: ORPAIN 12:00
PROVIDERS: ATTEND Specialist
DX: M51.16 Intervertebral disc disorders with radiculopathy, lumbar region (principal); Z79.899 Other long term (current) drug therapy
CPT/HCPCS: 64483

== ENCOUNTER → 2024-04-11 | Outpatient (CLI) | payer BC ==
[2024-04-11 10:46] VITALS: BP 155/94; PULSE 116; RESP 16; TEMP 97.1
--- NOTE | 2024-04-11 14:42 | P.PAINPG ---
PQRS Measure Charge Sheet Comment: A 53 yr old male with a history of severe and chronic LBP since 2017 (after falling 2 stories in 2004) secondary to lumbar DDD and spondylosis with facet arthropathy without myelopathy presents today for evaluation s/p BL TFESI L3-L4 #1. Pt states he experienced 60 % pain relief x 2 wks s/p procedure. Pain level is provoked at 6 /10 in intensity, constant, localized in the lumbar spine, predominantly axial, burning in character w occasional shooting towards the R thigh. Pain is provoked by weight bearing activity. Pain is alleviated with medications, topical, continuous physician guided home exercises consisting of 20 squats at bedtime x 20 yrs, swims three times weekly at the [facility], heat, ice, repositioning and rest. 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 Interventional pain procedures completed include MELANIE L4-L5 x1, Lumbar TPIs, BL TFESI L3-L4 x1 (Feb 2024) Patient is currently on [place] Patient denies any side effects of the medication(s), denies excessive drowsiness or sleepiness, denies suicidal ideation and reports that the current pain medication is helping to control the pain and improve activities of daily living. Patient denies any motor or sensory deficits. Patient denies any fever or night sweats, denies any change in the bowel movements or urination. Physical Examination: -Constitutional: Cooperative. Not in acute distress . - Neurologic: Cranial nerve II to XII intact. No focal neurological deficits. - Psychatric: Alert & oriented x 3. Matching mood & appropriate affect. Judgment and insight intact. - Musculoskeletal: Cervical spine: Muscle bulk/ tone/ strength in the bilateral upper extremities normal Vertebral body tenderness to palpation over Spurling test positive Distraction test positive Facet loading test positive TTP Thoracic spine Muscle bulk / tone/ strength in the bilateral paraspinal muscles normal Vertebral body tender to palpation over Facet loading test positive TTP Lumbar spine: Motor bulk/ tone/ strength lower extremities , thigh and legs : 5/5 Deep tendon reflexes : Normal Knee Jerk. Normal Ankle Jerk . Vertebral body tenderness to palpation over L5 Gonzalez Test positive BL L5-S1 Lumbar Facet Loading Test positive Straight Leg Raise: positive at 30 degrees right side/ left side Gaenslen's Test positive Sacral spine : Severe tenderness over the Sacroiliac joint: right side / left side Range of motion: Flexion of the lumbar spine <60 degrees Range of motion: Extension of the lumbar spine <20 degrees Gaenslen's Test positive right side / left side Alethea test: positive right side / left side Thigh Thrust Test positive right side / left side Sacral Thrust Test positive right side / left side Assessment and plan: Chronic LBP secondary to lumbar DDD, spondylosis with facet arthropathy without myelopathy Recommendation of BL TFESI L5-S1 #2. Risks, benefits of procedure discus sed and pt verbalized understanding. Admits to anticoagulant use or medical history of diabetes. Protocol for discontinuation/ continuation of medications andrew procedure discussed. All questions answered. I have spent less than 30 minutes on patient care today. Dr Paul was available by phone for the evaluation of this patient. The time was used to review the medical records including relevant urine studies and Prescription history (MAPs), review of the available imaging, evaluation and examination of the patient, coordination of care with the medical staff and if applicable referring physicians, as well as creation of the medical record PQRS Narrative: Smoking Status Former smoker Hx Alcohol Use (MH) No Home Medications: Ambulatory Orders Albuterol Nebulized [Ventolin Nebulized] 2.5 mg INHALATION Q6H PRN 03/01/16 HYDROcodone/APAP 7.5-325MG [[place] 7.5-325] 1 tab PO TID PRN 03/01/16 Ibuprofen [Motrin] 800 mg PO Q6HR PRN 12/17/22 diazePAM [Valium] 5 mg PO DAILY PRN 1 Days #2 tab 02/16/24 Controlled Substance Measures - Controlled Substance Measures Is patient prescribed a controlled substance at discharge?: No
== END ==
LOC: PNWHC3 08:38
PROVIDERS: ATTEND Specialist
DX: M54.16 Radiculopathy, lumbar region
CPT/HCPCS: 99211

== ENCOUNTER 2024-05-11 08:46 | Day surgery (SDC) | payer BC ==
[~2024-05-11 08:46] MED LIST: LACTATED RINGERS 1,000 ML IV SCH
[2024-05-11 09:28] VITALS: TEMP 97.3
[2024-05-11] MEDS ORDERED: IOPAMIDOL M300 15ML VIAL ONE (09:58)
[2024-05-11] MEDS ORDERED: DEXAMETHASONE SOD PHOSPHATE 10 MG/ML 1 ML VIAL ONE (09:58)
[2024-05-11] MEDS ORDERED: ROPIVACAINE 5MG/ML 20ML VIAL ONE (09:58)
[2024-05-11 10:31] VITALS: RESP 20
--- NOTE | 2024-05-11 10:43 | P.PCN ---
Description of Procedure: PREOPERATIVE DIAGNOSIS: 1-Lumbar radiculopathy . 2-lumbar degenerative disc disease. 3-lumbar spondylosis with lumbar facet arthropathy without myelopathy POSTOPERATIVE DIAGNOSIS: 1-lumbar radiculopathy. 2-lumbar degenerative disc disease. 3-lumbar spondylosis with facet arthropathy without myelopathy PROCEDURE 1. ATTEMPTED Transforaminal epidural steroid injection under fluoroscopic guidance at BILATERAL L5-S1 level. (Fluoroscopy images stored on file in the radiology Department ) 2. Lumbar epidurogram . ANESTHESIA: Local with 1% lidocaine 5 ml. subcutaneously. Continuous pulse ox, EKG, blood pressure and verbal communication was maintained with the patient. EBL: Minimal PROCEDURE INDICATION: The patient with low back pain and radiculopathy symptoms unresponsive to conservative treatment. The patient was seen and identified in the preoperative area. Risks, benefits, complications, and alternatives were discussed with the patient. The patient agreed to proceed with the procedure and signed the consent. IV was started, and vital signs were stable. PROCEDURE DESCRIPTION / TECHNIQUE: After getting consent, patient was taken to the OR and time out was completed. The patient was placed in the prone position on procedure table and a pillow was placed under the abdomen to reduce lumbar lordosis. The lumbosacral area was prepped and draped in the usual sterile fashion. Critical pause was taken. After injecting 5 mL of plain 1% lidocaine subcutaneously, under oblique view of the fluoroscope, a 22-gauge spinal needle was introduced under the tunnel view of the fluoroscope on the RIGHT side and the needle was advanced so that the tip of the needle was at the posterior inferior quadrant of the intervertebral foramen at the lateral view of the fluoroscope and in the lateral third of the facet column in the AP view of the fluoroscope. Negative CSF, negative blood, negative paresthesia. After needle position confirmation by AP and cross table lateral view, 3 mL of Isovue-M 200 contrast was injected under continuous fluoroscope. No contrast was noted in the intrathecal or intravascular space. The epidurogram was noted. This point, Patient started to complain pain in the right toe. I stopped injecting any more contrast. The toe pain slowly subsided. As patient did not want to proceed with the injection I took out the needle without injecting any steroids. At the end of the procedure, skin was cleansed, and bandages were applied. Patient's vitals were closely monitored in the OR. DISPOSITION / PLANS: No complication. The patient was placed in a supine position and transferred to the recovery area in a stable condition for observation. There was no evidence of lower extremity motor or sensory deficit after the procedure. Patient was discharged from the recovery room after meeting discharge criteria. Home discharge instructions were given to the patient by the staff. The patient was reexamined prior to discharge. IN FUTURE AVOID ANY TRANSFORAMINAL MELANIE AT L5-S1 LEVEL. ALSO INSTRUCT PT TO TAKE HIS PRESCRIPTION VALIUM AND NORCO IN THE AM OF PROCEDURE.
[2024-05-11 10:44] VITALS: BP 128/86; PULSE 97
--- NOTE | 2024-05-11 11:09 | FL ---
EXAMINATION TYPE: FL guided pain mgmt statistic DATE OF EXAM: 05/11/2024 10:20 AM COMPARISON: Pre Operative Images if available both CT/MRI or plain film CLINICAL INDICATION: Male, 53 years old with history of Transforaminal Inj; TECHNIQUE: FL guided pain mgmt statistic, multiple fluoroscopic images provided for procedure. Total fluoroscopy time: 18 seconds Total submitted images to PACS: 2 DAP: 0.00145 mGym2 Gycm2 uGym2 cGycm2 or equivalent. FINDINGS: Fluoroscopic images during injection for pain management demonstrate multilevel degeneration changes throughout the spine. No evidence for fracture. No acute process identified. IMPRESSION: 1. No evidence for intraoperative complication. 2. Please see the operative/procedural note for further details. [facility], , 05/11/2024 11:06 AM
== END 2024-05-11 10:54 | disposition home or self-care (01) ==
LOC: ORPAIN 08:46
PROVIDERS: ATTEND Pain Medicine Interventional Pain Medicine
DX: M47.816 Spondylosis without myelopathy or radiculopathy, lumbar region (principal); M54.16 Radiculopathy, lumbar region

== ENCOUNTER → 2024-06-08 | Outpatient (CLI) | payer BC ==
--- NOTE | 2024-06-10 21:14 | US ---
EXAMINATION TYPE: US liver DATE OF EXAM: 06/08/2024 COMPARISON: NONE CLINICAL INDICATION: Male, 54 years old with history of R74.8 ABNORMAL LEVELS OF OTHER SERUM ENZYMES; Elevated liver enzymes TECHNIQUE: Grayscale and color Doppler imaging of the right upper quadrant was performed. 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 Mild hepatomegaly with mild fatty infiltration. 2. Limited due to bowel gas [facility], Workstation: 3, 06/10/2024 9:11 PM
== END | disposition home or self-care (01) ==
LOC: RADUSWWP 07:29
PROVIDERS: ATTEND Family Medicine
DX: K76.0 Fatty (change of) liver, not elsewhere classified (principal); R16.0 Hepatomegaly, not elsewhere classified; R74.8 Abnormal levels of other serum enzymes
CPT/HCPCS: 76705

== ENCOUNTER → 2024-07-16 | Outpatient (CLI) | payer BC ==
--- NOTE | 2024-07-17 15:24 | CT ---
EXAMINATION TYPE: CT abdomen wo/w con DATE OF EXAM: 07/16/2024 6:24 PM COMPARISON: CT abdomen pelvis most recent from 06/08/2022, ultrasound June 08, 2024 CLINICAL INDICATION: Male, 54 years old with history of R10.9 Flank pain; renal mass, abnormal LFT TECHNIQUE: Axial CT abdomen wo/w con;Sagittal and coronal reformats were created on a separate works tation. Contrast used:100 mL of Isovue 300 without and with IV Contrast, (none if empty) Oral contrast used: with Oral Contrast (none if empty) CT DLP: 2222 mGycm, Automated exposure control for dose reduction was used. FINDINGS: LOWER CHEST: Unremarkable ABDOMEN LIVER: Diffusely hypoattenuating parenchyma. GALLBLADDER AND BILE DUCTS: Unremarkable. PANCREAS: Unremarkable. SPLEEN: Unremarkable. ADRENAL GLANDS: Unremarkable. KIDNEYS AND URETERS: No evidence of hydronephrosis or renal calculus. The ureters are unremarkable. No enhancing renal mass visualized. STOMACH AND BOWEL: No evidence of bowel obstruction. The appendix is normal. PERITONEUM/RETROPERITONEUM: No evidence of pneumoperitoneum or free fluid. VASCULATURE: No evidence of aortic aneurysm. MUSCULOSKELETAL: No acute osseous abnormalities LYMPH NODES: No gross evidence for lymphadenopathy. SOFT TISSUE/ABDOMINAL WALL: Unremarkable IMPRESSION: 1. No evidence for renal mass or lymphadenopathy. No evidence for acute process. 2. Hepatic steatosis. [facility], , 07/17/2024 3:21 PM
== END | disposition home or self-care (01) ==
LOC: RADCTMAIN 16:56
PROVIDERS: ATTEND Family Medicine
DX: K76.0 Fatty (change of) liver, not elsewhere classified (principal); N28.89 Other specified disorders of kidney and ureter
CPT/HCPCS: 74170; Q9967

== ENCOUNTER → 2025-01-10 | Outpatient (CLI) | payer BC, OTHER ==
[2025-01-10 09:11] VITALS: BP 139/96; PULSE 103; RESP 17; TEMP 97.9
--- NOTE | 2025-01-10 14:38 | P.PAINPG ---
Objective - Vital Signs Vital signs: Intake & Output 01/09/25 01/10/25 01/10/25 18:59 06:59 18:59 Weight 111.584 kg PQRS Measure Charge Sheet Comment: A 54 yr old male with a history of severe and chronic LBP since 2016 (after falling 2 stories in 2004) secondary to radiculopathy, spondylosis with facet arthropathy without myelopathy presents today for evaluation s/p attempted BL TFESI L5-S1 #1. Pt states he experienced R toe pain during the procedure and was not completed. Pain level is provoked at 6 /10 in intensity, constant, localized in the lumbar spine, predominantly axial, burning in character w occasional shooting towards the R thigh. Pain is provoked by weight bearing activity. Pain is alleviated with medications, topical, continuous physician guided home exercises consisting of 20 squats at bedtime x 20 yrs, swims three times weekly at the [facility], heat, ice, repositioning and rest. 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 Interventional pain procedures completed include MELANIE L4-L5 x1, Lumbar TPIs, BL TFESI L3-L4 x1 (Feb 2024), BL TFESI L5-S1 x1 (No success) Patient is currently on [place] , Hx of Cannabis use for pain Patient denies any side effects of the medication(s), denies excessive drowsiness or sleepiness, denies suicidal ideation and reports that the current pain medication is helping to control the pain and improve activities of daily living. Patient denies any motor or sensory deficits. Patient denies any fever or night sweats, denies any change in the bowel movements or urination. Physical Examination: -Constitutional: Cooperative. Not in acute distress . - Neurologic: Cranial nerve II to XII intact. No focal neurological deficits. - Psychatric: Alert & oriented x 3. Matching mood & appropriate affect. Judgment and insight intact. - Musculoskeletal: Cervical spine: Muscle bulk/ tone/ strength in the bilateral upper extremities normal Vertebral body tenderness to palpation over Spurling test positive Distraction test positive Facet loading test positive TTP Thoracic spine Muscle bulk / tone/ strength in the bilateral paraspinal muscles normal Vertebral body tender to palpation over Facet loading test positive TTP Lumbar spine: Motor bulk/ tone/ strength lower extremities , thigh and legs : 5/5 Deep tendon reflexes : Normal Knee Jerk. Normal Ankle Jerk . Vertebral body tenderness to palpation over L3 Gonzalez Test positive BL L3-L4 Lumbar Facet Loading Test positive Straight Leg Raise: positive at 30 degrees right side/ left side Gaenslen's Test positive Sacral spine : Severe tenderness over the Sacroiliac joint: right side / left side Range of motion: Flexion of the lumbar spine <60 degrees Range of motion: Extension of the lumbar spine <20 degrees Gaenslen's Test positive right side / left side Alethea test: positive right side / left side Thigh Thrust Test positive right side / left side Sacral Thrust Test positive right side / left side Assessment and plan: Chronic LBP secondary to radiculopathy, spondylosis with facet arthropathy without myelopathy Recommendation of BL TFESI L3-L4 #2. Risks, benefits of procedure discussed and pt verbalized understanding. Admits to anticoagulant use or medical history of diabetes. Protocol for discontinuation/ continuation of medications andrew procedure discussed. All questions answered. I have spent less than 30 minutes on patient care today. Dr Paul was available by phone for the evaluation of this patient. The time was used to review the medical records including relevant urine studies and Prescription history (MAPs), review of the available imaging, evaluation and examination of the patient, coordination of care with the medical staff and if applicable referring physicians, as well as creation of the medical record PQRS Narrative: Smoking Status Former smoker Hx Alcohol Use (MH) No Home Medications: Ambulatory Orders Albuterol Nebulized [Ventolin Nebulized] 2.5 mg INHALATION Q6H PRN 03/01/16 HYDROcodone/APAP 7.5-325MG [[place] 7.5-325] 1 tab PO TID PRN 03/01/16 Ibuprofen [Motrin] 800 mg PO Q6HR PRN 12/17/22 diazePAM [Valium] 5 mg PO DAILY PRN 1 Days #2 tab 02/16/24 ALPRAZolam [Xanax] 1 mg PO Q8H PRN 04/11/24 Cyclobenzaprine [Flexeril] 10 mg PO HS 04/11/24 Controlled Substance Measures - Controlled Substance Measures Is patient prescribed a controlled substance at discharge?: No
== END ==
LOC: PNWHC3 08:24
PROVIDERS: ATTEND Specialist
DX: M47.26 Other spondylosis with radiculopathy, lumbar region (principal); F12.90 Cannabis use, unspecified, uncomplicated; Z87.891 Personal history of nicotine dependence
CPT/HCPCS: 99211